=== PATIENT | male | born 1985 | race Caucasian/White ===

== ENCOUNTER 2017-09-11 17:44 | Emergency (ER) | payer OTHER ==
[~2017-09-11] VITALS: Ht 175.3 cm; Wt 64.1 kg
[2017-09-11] MEDS ORDERED: FLON1SPR (18:56)
[2017-09-11] MEDS ORDERED: IBUP-1022 PO (18:56)
[2017-09-11] MEDS ORDERED: AUGM875T28 PO (18:56)
[2017-09-11 19:10] VITALS: BP 140/78
== END 2017-09-11 19:11 | disposition home or self-care (01) ==
LOC: M ED 17:44
DX: H66.93 Otitis media, unspecified, bilateral (principal)

== ENCOUNTER 2019-10-31 22:44 | Emergency (ER) | payer OTHER ==
[~2019-10-31] VITALS: Ht 175.3 cm; Wt 78.6 kg
[~2019-10-31 22:44] MED LIST: AUGM875T28 PO; FLON1SPR; IBUP-1022 PO
[2019-10-31 22:45] VITALS: BP 129/76
== END 2019-11-01 00:08 | disposition home or self-care (01) ==
LOC: M ED 22:44
DX: S60.444A External constriction of right ring finger, initial encounter (principal); W49.04XA Ring or other jewelry causing external constriction, initial encounter; Y92.89 Other specified places as the place of occurrence of the external cause